=== PATIENT | female | born 1985 | race Caucasian/White ===

== ENCOUNTER 2018-07-16 14:51 | Observation (INO) | payer OTHER ==
[2018-07-16] MEDS ORDERED: ACETAMINOPHEN 325 MG TAB PO PRN (17:01)
[2018-07-16] MEDS ORDERED: ONDANSETRON DISINTEGRATING 4 MG TAB PO PRN (17:01)
[2018-07-16] MEDS ORDERED: NALOXONE HCL 0.4 MG/ML INJ IVP PRN (17:01)
[2018-07-16] MEDS ORDERED: ONDANSETRON 4 MG/2 ML VIAL IVP PRN (17:01)
[2018-07-16] MEDS ORDERED: ZOLPIDEM TARTRATE 5 MG TAB PO PRN (17:08)
[2018-07-16] MEDS ORDERED: HYDROmorphONE/DILAUDID 6 MG/30 ML PCA IV PRN (17:08)
[2018-07-16] MEDS ORDERED: ceFAZolin 2 GM/DEXTROSE 100 ML IV ONE (17:21)
[2018-07-16] MEDS: oxyCODONE IR 5 MG TAB PO PRN (17:53)
[2018-07-16] MEDS: D5W 1/2 NS W/ 20 KCl/L 1,000 ML IV SCH (17:55)
--- NOTE | 2018-07-16 18:06 | GHP ---
DATE OF ADMISSION: 07/16/2018 By history, this is a 33-year-old lady who has had a right 7 mm ureteral calculus. Initial symptoms began 7 days ago and have been described as sharp pain, dull pain, abdominal discomfort, and she rate s her pain as severe. She feels the problem is likely in the flank and pelvis, kidney. She was seen in the emergency room on 07/19/2018. CAT scan showed a 7 mm proximal right ureteral stone. She was discharged home to see [facility] on 07/12. She has been using morphine for pain. She was seen in the o ice today at [facility]'s office and it was noted she had pains. She is requesting to have treatment, so she is admitted for hydration, pain control, and ureteroscopic manipulation of the stone. PAST HISTORY: Kidney stones. SURGICAL HISTORY: Gastric bypass. MEDICATION: 1. Doxycycline. 2. Zopiclone. 3. Fluoxetine. 4. Metronidazole. 5. Ondansetron. 6. Tamsulosin. ALLERGIES: None. FAMILY HISTORY: Noncontributory. Nondrinker. Nonsmoker. She is , is a medical lab technologist. REVIEW OF SYSTEMS: Negative cardiac, respiratory, GI, and endocrine. She has had anxiety in the pas t. PHYSICAL EXAM: VITAL SIGNS: In the office, she had a blood pressure 117/76, respirations 16, heart r ate 60, and regular, BMI 38.04, O2 saturation on room air was 96%. GENERAL: She is alert and orient ed x3. HEENT: No scleral icterus. NECK: Full range of motion. CHEST: Unlabored breathing. HEART: Regular rate and rhythm. ABDOMEN : No organomegaly, rebound, or guarding. She does have some right-sided abdominal pain to deep palp ation. Bladder is nontender. LYMPHATIC: No lymphadenopathy is appreciated. MUSCULOSKELETAL: Full range of motion. Supple. SKIN: Normal. NEUROLOGICAL: To person, place, and time. LABORATORY DATA: She has had a urinalysis that showed a specific gravity 1.025, moderate blood, nega tive nitrite, negative white blood cells, and bilirubin was +2, moderate. Glucose negative. At the present time, she has a right 7 mm proximal ureteral calculus. She is admitted for pain contr ol, hydration, and surgical management on Thursday. /[id number]/MODL
[2018-07-17] MEDS: oxyCODONE IR 5 MG TAB PO PRN (00:07)
[2018-07-17] MEDS: D5W 1/2 NS W/ 20 KCl/L 1,000 ML IV SCH (00:13)
[2018-07-17 05:30] LABS: PLATELET COUNT 159 10^3/uL (150-400)
[2018-07-17] MEDS ORDERED: ceFAZolin 2 GM/DEXTROSE 100 ML IV ONE (07:00)
[2018-07-17] MEDS ORDERED: LIDOCAINE 2% JELLY 20 ML (UROJECT) ONE (07:37)
[2018-07-17] MEDS ORDERED: IOPAMIDOL (ISOVUE-M 300) 15 ML VIAL ONE (07:37)
--- NOTE | 2018-07-17 07:45 | PDHPUP ---
History & Physical Update H&P update statement: This history and physical update is based on an assessment of the patient which was completed after admission or registration (within 24 hours), but prior to the surgery/procedure. H&P update: H&P reviewed & patient examined, no change in patient's condition since H&P completed
[2018-07-17] MEDS ORDERED: LR 1,000 ML IV ONE (07:52)
[2018-07-17] MEDS ORDERED: MIDAZOLAM 2 MG/2 ML VIAL ONE (07:59)
[2018-07-17] MEDS ORDERED: MIDAZOLAM 2 MG/2 ML VIAL IVP ONE (08:01)
--- NOTE | 2018-07-17 08:02 | PDANEPAE ---
ANE History of Present Illness 33 yo for ureteroscopy ANE Past Medical History - Cardiovascular History Hx Hypertension: No Hx Arrhythmias: No Hx Chest Pain: No Hx Coronary Artery / Peripheral Vascular Disease: No Hx CHF / Valvular Disease: No Hx Palpitations: No - Pulmonary History Hx COPD: No Hx Asthma/Reactive Airway Disease: No Hx Oxygen in Use at Home: No Hx Sleep Apnea: No Sleep Apnea Screening Result - Last Documented: Positive - Endocrine History Hx Diabetes: No - Chronic Pain History Chronic Pain: No ANE Review of Systems Review of Systems: - Exercise capacity METS (RN): 4 METS ANE Patient History - Allergies Allergies/Adverse Reactions: No Known Allergies Allergy (Unverified 07/16/18 17:01) - Home Medications Home medications: home medication list seen and reviewed Home Medications: Dexlansoprazole [Dexilant] 60 mg PO DAILY 07/16/18 [Last Taken 07/15/18] Eszopiclone [Lunesta] 2 mg PO HS 07/16/18 [Last Taken 07/15/18] FLUoxetine [Prozac 20 MG (*)] 40 mg PO DAILY 07/16/18 [Last Taken 07/15/18] Herbals/Supplements -Info Only 1 ea PO DAILY 07/16/18 [Last Taken Unknown] Ondansetron Odt [Zofran Odt 4 mg (*)] 4 mg PO Q4H PRN 07/16/18 [Last Taken 07/15] Rizatriptan Benzoate [Maxalt] 10 mg PO DAILY PRN 07/16/18 [Last Taken Unknown] Tamsulosin HCl [Flomax 0.4 MG (*)] 0.4 mg PO DAILY@06 07/16/18 [Last Taken 07/15] morphINE IR [morphINE IR 15 mg (*)] 15 mg PO Q4-6PRN PRN 07/16/18 [Last Taken 06:00] - NPO status NPO Since - Liquids (Date): 07/17/18 NPO Since - Liquids (Time): 00:01 NPO Since - Solids (Date): 07/16/18 NPO Since - Solids (Time): 20:00 - Smoking Hx Smoking Status: Former smoker ANE Labs/Vital Signs - Labs Result Diagrams: 07/17/18 04:22 07/17/18 04:22 - Vital Signs Blood Pressure: 120/83 Heart Rate: 45 Respiratory Rate: 14 O2 Sat (%): 95 Height: 5 ft 2 in Weight: 93.61 kg ANE Physical Exam - Airway Mallampati Score: Class 2 Mouth exam: normal dental/mouth exam - Pulmonary Pulmonary: no respiratory distress - Cardiovascular Cardiovascular: regular rate and rhythym - ASA Status ASA Status: II ANE Anesthesia Plan Anesthesia Plan: GA with mask
[2018-07-17] MEDS ORDERED: fentaNYL 100 MCG/2 ML INJ ONE ×3 (08:07→09:28)
[2018-07-17] MEDS ORDERED: PROPOFOL/EMULSION 500 MG/50 ML BOTTLE IV ONE (08:08)
[2018-07-17] MEDS ORDERED: NALOXONE HCL 0.4 MG/ML INJ IVP PRN (09:21)
[2018-07-17] MEDS ORDERED: fentaNYL 100 MCG/2 ML INJ IVP PRN (09:21)
[2018-07-17] MEDS ORDERED: HYDROCODONE/APAP 5/325 TAB PO PRN (09:21)
[2018-07-17] MEDS ORDERED: ONDANSETRON 4 MG/2 ML VIAL IVP PRN (09:21)
--- NOTE | 2018-07-17 09:22 | POSTANESTH ---
Post Anesthetic Evaluation Cardiovascular Status: Normal, Stable Respiratory Status: Tx Decrease in SpO2 Level of Consciousness/Mental Status: Can Participate in Eval Pain Control: Adequate, Prn Tx Ordered Nausea/Vomiting Control: Adequate, Prn Tx Ordered Complications Possibly Related to Anesthesia: None Noted
--- NOTE | 2018-07-17 09:48 | ASMTCMCOM ---
CM Note CM Note Notes: Pt is a 78 y/o man admitted for weakness and failure to thrive. Pt with a hx of metastatic melanoma status post previous chemo on current immunotherapy. Pt has a hx of etoh abuse. Please see additional medcal history from H&P. Therapies have been ordered and awaiting recommendations. Needs are TBD at this time. CM to follow. Plan: TBD Date Signed: 07/17/2018 09:47 AM Electronically Signed By:DEEPALI Reyes
[2018-07-17 10:07] VITALS: BP 124/78
--- NOTE | 2018-07-17 10:09 | ASMTCMCOM ---
CM Note CM Note Notes: Please disregard previous case management note. It was incorrectly inputted Pt is a 33 y/o female admitted for sharp pain and abdominal discomfort. Pt was seen in the ED on 07/19/18 and had a CAT scan that showed 7mm proximal right ureteral stone. Pt had surgery to remove the stone. Pt will most likely d/c independent when medically stable. No therapies ordered at this time. Pt has a supportive . CM available for changes. Plan: Independent Date Signed: 07/17/2018 10:08 AM Electronically Signed By:DEEPALI Reyes
--- NOTE | 2018-07-17 10:09 | POSTOPPROG ---
Post Op Note Date of Operation: 07/17/18 (dictated) Surgeon: Haim Bear Anesthesiologist: Liz Anesthesia: LMA Pre-op Diagnosis: rt stone Post-op Diagnosis: rt ureterolithiasis, nephrocalcinosis Procedure: ureteroscopy, ureteral stone removal and laser renal stones Inf/Abcess present in the surg proc area at time of surgery?: No EBL: Minimal Drains: Other (stent) Specimen(s): stone for analysis--seemed like a Ca Ox stone
--- NOTE | 2018-07-17 10:23 | GOP ---
DATE OF OPERATION: 07/16/2018 SURGEON: Haim Bear MD PREOPERATIVE DIAGNOSIS: Right ureterolithiasis. 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 PROCEDURE PERFORMED: Cystoscopy, retrograde ureteral pyelogram, laser lithotripsy of intrarenal ston es, and extraction of distal ureteral calculus ureteroscopically, and stent placement, fluoroscopy wi th interpretation performed. FINDINGS: DESCRIPTION OF PROCEDURE: Lady underwent general anesthesia, and after appropriate time-out, the rig ht ureteral orifice was cannulated after passing the cystoscope. She did have no tumor stones, forei gn bodies, or diverticula in the bladder, and retrograde revealed minimally dilated ureter and no obv ious stone on the retrograde. I was able to pass the ureteral access sheath up, and flexible uretero scopy of the renal pelvis and all calices. There were multiple Yoshi plaques and calcifications of the kidney, and I lasered multiple Yoshi plaques with the Holmium laser, and then at that point, o n removal of the scope and the sheath, she had the distal ureteral calculus that was causing inflamma tion of the distal ureter, and I was able to dislodge the stone, grasp it in a basket, and remove it intact, and then re-visualization revealed just inflammation, irritation of the distal ureter. So I elected to place a 4.7 multi-length stent. I will have her keep it in for approximately 10 days, to see me in the office for removal. Stone will be sent for analysis. No complications noted, and at t he end of the procedure, bladder was emptied. Uro-Jet was used for local anesthesia transurethrally, and vaginal exam revealed no pelvic masses, and a mobile uterus. /[id number]/MODL
== END 2018-07-17 11:49 | disposition home or self-care (01) ==
LOC: F1N 15:54
PROVIDERS: ADMIT Specialist; ATTEND Specialist
PROC: 0TC68ZZ Extirpation of Matter from Right Ureter, Via Natural or Artificial Opening Endoscopic (ICD-10-PCS; principal; 2018-07-16)
DX: N20.1 Calculus of ureter (principal); Z90.3 Acquired absence of stomach [part of]; Z87.891 Personal history of nicotine dependence
CPT/HCPCS: 52320; 76001; C1758; C1769; C1894; G0378; 82365-90; C2625; J0690; J2250; J2704; J3010; Q9967